=== PATIENT | female | born 1950 | race Caucasian/White ===

== ENCOUNTER 2017-04-28 07:12 | Emergency (ER) | payer MEDICARE ==
[~2017-04-28] VITALS: Ht 172.7 cm; Wt 106.8 kg
[~2017-04-28 07:12] MED LIST: AMLO2.5T PO; CLON0.1T PO; DIAZ5TAB PO; LOSA50TA6 PO; LOVA10TA PO; ONDA4TAB10 PO
[2017-04-28] MEDS ORDERED: BUSP15TA PO (07:36)
[2017-04-28] MEDS ORDERED: DIAZ5TAB PO (07:37)
[2017-04-28] MEDS ORDERED: ZOLP-413 PO (07:38)
[2017-04-28] MEDS ORDERED: LAMO25TA8 PO (07:40)
[2017-04-28] MEDS ORDERED: ACETAMINOPHEN 500 MG TABLET PO ONE (08:00)
[2017-04-28] MEDS ORDERED: ACETAMINOPHEN 500 MG TABLET ONE (08:05)
[2017-04-28 08:08] LABS: HEMATOCRIT 45.5 % (34.6-47.8); HEMOGLOBIN 15.9 g/dL (11.7-16.4); WHITE BLOOD COUNT 4.2 x10^3/uL (3.4-10)
[2017-04-28 08:20] LABS: ASPARTATE AMINO TRANSFERASE 30 U/L (15-37); BLOOD UREA NITROGEN 14 mg/dL (7-18)
[2017-04-28 08:30] LABS: PATH.CAST-FLAG NOT PRESENT; SPERM-FLAG NOT PRESENT; SRC-FLAG NOT PRESENT; XTAL-FLAG NOT PRESENT; YLC-FLAG NOT PRESENT
[2017-04-28 10:53] VITALS: BP 133/84
== END 2017-04-28 11:26 | disposition home or self-care (01) ==
LOC: ED 08:00
DX: F41.1 Generalized anxiety disorder (principal); I10 Essential (primary) hypertension; Z88.8 Allergy status to other drugs, medicaments and biological substances
CPT/HCPCS: 36415; 80053; 81001; 82140; 83690; 85025; 85610; 87086; 93005; 99285

== ENCOUNTER → 2018-08-19 | Outpatient (CLI) | payer MEDICARE ==
[~2018-08-19] MED LIST changes: -AMLO2.5T PO; +AMLO2.5T3 PO; +BUSP15TA PO; -CLON0.1T PO; +CLON0.1T22 PO; +LAMO25TA8 PO; -LOSA50TA6 PO; +LOSA50TA7 PO; +ZOLP-413 PO
== END | disposition home or self-care (01) ==
LOC: CFH 10:23
PROVIDERS: ATTEND Internal Medicine
DX: Z12.31 Encounter for screening mammogram for malignant neoplasm of breast (principal)
CPT/HCPCS: 77063; 77067

== ENCOUNTER → 2018-09-22 | Outpatient (CLI) | payer MEDICARE ==
[~2018-09-22] MED LIST changes: -AMLO2.5T3 PO; +AMLO2.5T5 PO; +LOSA50TA14 PO; -LOSA50TA7 PO
== END | disposition home or self-care (01) ==
LOC: CFH 09:02
PROVIDERS: ATTEND Internal Medicine Nephrology
DX: I12.9 Hypertensive chronic kidney disease with stage 1 through stage 4 chronic kidney disease, or unspecified chronic kidney disease (principal); N18.3 Chronic kidney disease, stage 3 (moderate); F41.9 Anxiety disorder, unspecified
CPT/HCPCS: 76770

== ENCOUNTER 2019-02-01 10:28 | Emergency (ER) | payer MEDICARE ==
[~2019-02-01] VITALS: Ht 172.7 cm; Wt 97.0 kg
--- NOTE | 2019-02-01 10:48 | NUR ---
ASSUMED CARE OF PT AT THIS TIME FROM TRIAGE, AMBULATORY TO ROOM WITH STEADY GAIT WITH SPOUSE. 68 Y/O F PRESENTS WITH "THE SHAKES, I HAVE ANXIETY AND PANIC ATTACKS, BEEN GOING ON FOR 4 YEARS, CHANGING MY MEDICATIONS EVERY 6 MONTHS, I STARTED KETAMINE TREATMENT WEDNESDAY AND STOPPED THE ATIVAN THAT WASN'T WORKING. I JUST FEEL LIKE I'M HAVING PALPITATIONS AND REALLY ANXIOUS, THEY GIVE ME ATIVAN IN THE ER AND IT ALWAYS HELPS WHICH IS ODD SINCE MY PILLS AT HOME WEREN'T." CONT PULSE OX, BP, CARDIAC MONITORS APPLIED. SR ON MONITOR. DENIES ANY CP, SOB, PAIN, N/V/D, CANTU, DIZZINESS. SHAKING NOTED IN BILATERAL UPPER EXTREMITIES. DENIES ETOH/DRUG USE. SPOUSE AT BEDSIDE. CALL LIGHT IN REACH. FALL PRECAUTIONS IN PLACE. SIDE RAILS UPX2. A&OX4. AWAITING EVAL BY ERP
[2019-02-01] MEDS ORDERED: LOSA50TA14 PO (10:51)
[2019-02-01] MEDS ORDERED: LORA-445 PO (10:51)
[2019-02-01] MEDS ORDERED: LOVA20TA2 PO (10:51)
[2019-02-01] MEDS ORDERED: VENL75CA PO (10:51)
[2019-02-01] MEDS ORDERED: TRAZ-137 PO (10:51)
[2019-02-01] MEDS ORDERED: LORazepam 2 MG/ML, 1ML IM ONE (10:58)
--- NOTE | 2019-02-01 11:00 | NUR ---
DR. WOOD AT BEDSIDE FOR EVALUATION, AWAITING ORDERS.
[2019-02-01] MEDS ORDERED: LORazepam 2 MG/ML, 1ML ONE (11:05)
--- NOTE | 2019-02-01 11:18 | NUR ---
PT MEDICATED NOTED PER MD ORDER AND EMAR FOR ANXIETY. RESTING IN POSITION OF COMFORT. SPOUSE AT BEDSIDE. VSS. DENIES NEED TO USE RESTOOM. CALL LIGHT IN REACH
[2019-02-01] MEDS ORDERED: PROMETHAZINE 25 MG/ML, 1ML ONE (11:54)
--- NOTE | 2019-02-01 11:54 | NUR ---
PT REPORTS ANXIETY "UNIMPROVED AND FEELING NAUSEATED," DR. WOOD AT BEDSIDE, AWAITING ORDERS.
--- NOTE | 2019-02-01 11:57 | NUR ---
FLOAT RN GEE AT BEDSIDE TO ASSIST WITH MEDICATION ADMINISTRATION FOR NAUSEA
[2019-02-01] MEDS ORDERED: PROMETHAZINE 25 MG/ML, 1ML IM ONE (12:00)
--- NOTE | 2019-02-01 12:18 | NUR ---
BEDSIDE REPORT FROM LESA DUVALL. ASSUMED CARE OF PATIENT AT THIS TIME.
--- NOTE | 2019-02-01 12:19 | NUR ---
BEDSIDE REPORT AND CARE TO LEXIE MCFADDEN AT THIS TIME
--- NOTE | 2019-02-01 12:50 | NUR ---
PATIENT REPORTS MEDICATION HELPED AND STATES SHE "FEELS BETTER". CHART UP FOR RECHECK, AWAITING FURTHER ORDERS, NO ADDITIONAL NEEDS AT THIS TIME, PATIENT SITTING IN GURNEY SPEAKING WITH FAMILY AT BEDSIDE.
[2019-02-01 13:44] VITALS: BP 152/77
--- NOTE | 2019-02-01 13:45 | NUR ---
Patient/Caregiver given discharge instructions and they have confirmed that they understand the instructions. Patient ambulatory with steady gait.
== END 2019-02-01 13:46 | disposition home or self-care (01) ==
LOC: ED 12:49
DX: F41.1 Generalized anxiety disorder (principal); R06.4 Hyperventilation; I10 Essential (primary) hypertension
CPT/HCPCS: 96372; 99284; J2060; J2550

== ENCOUNTER 2019-03-03 09:34 | Outpatient (CLI) | payer MEDICARE | END 2019-03-03 23:59 | disposition home or self-care (01) | LOC: CFH 09:34 → EDSTATUS 11:15 → CFH 23:59 | PROVIDERS: ATTEND Nurse Practitioner Primary Care | DX: K42.9 Umbilical hernia without obstruction or gangrene (principal); M47.817 Spondylosis without myelopathy or radiculopathy, lumbosacral region; M85.80 Other specified disorders of bone density and structure, unspecified site; I11.9 Hypertensive heart disease without heart failure | CPT/HCPCS: 74177; Q9967 ==

== ENCOUNTER 2019-03-08 09:16 | Outpatient (CLI) | payer MEDICARE ==
[~2019-03-08] VITALS: Ht 172.7 cm; Wt 98.0 kg
[~2019-03-08 09:16] MED LIST changes: +GABA300C10 PO; +LORA-445 PO; +LOVA20TA2 PO; +TRAZ-137 PO; +VENL75CA PO
[2019-03-08] MEDS ORDERED: COSYNTROPIN 0.25 MG IVPush ONE (10:00)
[2019-03-08 11:30] VITALS: BP 137/63
[2019-03-29] MEDS ORDERED: DIAZ5TAB PO (10:31)
[2019-03-29] MEDS ORDERED: TRAZ150T62 PO (10:31)
[2019-03-29] MEDS ORDERED: Propranolol PO (10:31)
[2019-03-31] MEDS ORDERED: VENL37.52 PO (15:34)
[2019-03-31] MEDS ORDERED: LISI-167 PO (15:34)
[2019-03-31] MEDS ORDERED: DIAZ5TAB PO (15:34)
[2019-03-31] MEDS ORDERED: ESCI10TA PO (15:34)
== END 2019-03-08 23:59 | disposition home or self-care (01) ==
LOC: INFUSION 09:16
PROVIDERS: ATTEND Internal Medicine
DX: R61 Generalized hyperhidrosis (principal); R00.0 Tachycardia, unspecified; R53.83 Other fatigue; R42 Dizziness and giddiness; R25.1 Tremor, unspecified; F41.9 Anxiety disorder, unspecified; I11.0 Hypertensive heart disease with heart failure; I50.9 Heart failure, unspecified; Z79.899 Other long term (current) drug therapy
CPT/HCPCS: 36415; 82533; 96374; J0834

== ENCOUNTER 2019-03-23 10:51 | Emergency (ER) | payer MEDICARE ==
[~2019-03-23] VITALS: Ht 172.7 cm; Wt 97.9 kg
[2019-03-23 14:57] VITALS: BP 189/74
== END 2019-03-23 15:22 | disposition home or self-care (01) ==
LOC: ED 14:09
DX: F41.1 Generalized anxiety disorder (principal); I10 Essential (primary) hypertension; R06.4 Hyperventilation
CPT/HCPCS: 36415; 71045; 80053; 83880; 84484; 85025; 93005; 96372; 99284; J2550

== ENCOUNTER 2019-05-08 18:45 | Inpatient (IN) | payer MEDICARE ==
[~2019-05-08] VITALS: Ht 172.7 cm; Wt 93.0 kg
[~2019-05-08 18:45] MED LIST changes: +ESCI10TA PO; +LISI-167 PO; +Propranolol PO; +TRAZ150T62 PO; +VENL37.52 PO
[2019-05-08] MEDS ORDERED: BISACODYL 10 MG SUPP PR PRN (19:00)
[2019-05-08] MEDS ORDERED: DOCUSATE 100 MG CAPSULE PO PRN (19:00)
[2019-05-08] MEDS ORDERED: ACETAMINOPHEN 325 MG TABLET PO PRN (19:00)
[2019-05-08 20:12] VITALS: BP 110/72
[2019-05-08] MEDS ORDERED: PLEASE ENTER HEIGHT AND WEIGHT MC SCH (20:30)
[2019-05-08] MEDS: LOVASTATIN 20 MG TABLET PO SCH (21:34)
[2019-05-08] MEDS: TRAZODONE 150MG TABLET PO SCH (21:34)
[2019-05-09 06:01] VITALS: BP 101/63
[2019-05-09] MEDS: DIAZEPAM 5 MG TABLET PO SCH ×2 (06:02→17:42)
[2019-05-09 06:26] LABS: ANION GAP 8 mmol/L (5-15); CHLORIDE 113 mmol/L (98-107); CHOLESTEROL, TOTAL 140 mg/dL (140-239); CREATININE 1.32 mg/dL (0.55-1.02); TRIGLYCERIDES 99 mg/dL (50-200); VLDL CHOLESTEROL 20 mg/dL (0-25)
[2019-05-09 06:36] LABS: CHOL/HDL RATIO 2.5; FREE T4 (FREE THYROXINE) 1.28 ng/dL (0.76-1.46); HDL CHOL % 40 % (28-40); HDL CHOLESTEROL (DIRECT) 56 mg/dL (40-60); LDL CHOLESTEROL,CALCULATED 64 mg/dL (54-169); LDL/HDL RATIO 1.1 (0.5-3.0)
[2019-05-09 07:45] VITALS: BP 119/72
[2019-05-09] MEDS: LISINOPRIL 10 MG TABLET PO SCH (08:33)
[2019-05-09] MEDS: ESCITALOPRAM 10MG TABLET PO SCH (08:33)
[2019-05-09] MEDS ORDERED: FLU VAC QS 19-20(4YR UP)CEL/PF 0.5 ML IM-VACC ONE (12:00)
[2019-05-09] MEDS ORDERED: FLU VACCINE PER PHARMACY IM ONE (12:00)
[2019-05-09] MEDS ORDERED: DIAZEPAM 5 MG TABLET PO ONE (12:00)
[2019-05-09 13:43] LABS: MICROSCOPIC AUTO
[2019-05-09 13:44] LABS: CULTURE INDICATED? YES
[2019-05-09 15:44] LABS: AMPHETAMINE SCREEN, URINE Negative (Negative); BARBITURATE SCREEN, URINE Negative (Negative); BENZODIAZEPINE SCREEN, URINE Positive (Negative); CANNABINOID SCREEN, URINE Negative (Negative); COCAINE SCREEN, URINE Negative (Negative); METHADONE SCREEN, URINE Negative (Negative); OPIATE SCREEN, URINE Negative (Negative)
[2019-05-09 20:05] VITALS: BP 128/74
[2019-05-09] MEDS: LOVASTATIN 20 MG TABLET PO SCH (21:15)
[2019-05-09] MEDS: TRAZODONE 150MG TABLET PO SCH (21:15)
[2019-05-10 07:16] VITALS: BP 147/78
[2019-05-10] MEDS: DIAZEPAM 5 MG TABLET PO SCH ×2 (07:23→17:04)
[2019-05-10] MEDS: LISINOPRIL 10 MG TABLET PO SCH (08:21)
[2019-05-10] MEDS: ESCITALOPRAM 10MG TABLET PO SCH (08:21)
[2019-05-10] MEDS ORDERED: LORazepam 0.5MG TABLET PO ONE (09:39)
[2019-05-10] MEDS ORDERED: LORazepam 0.5MG TABLET ONE (09:43)
[2019-05-10] MEDS ORDERED: DIAZEPAM 5 MG TABLET PO SCH (13:30)
[2019-05-10] MEDS: hydrOXyzine 10MG TABLET PO SCH ×2 (18:37→20:43)
[2019-05-10 19:47] VITALS: BP 144/75
[2019-05-10] MEDS: TRAZODONE 150MG TABLET PO SCH (20:43)
[2019-05-10] MEDS: LOVASTATIN 20 MG TABLET PO SCH (20:43)
[2019-05-11] MEDS: DIAZEPAM 5 MG TABLET PO SCH ×3 (05:38→20:01)
[2019-05-11 07:26] VITALS: BP 152/79
[2019-05-11] MEDS: hydrOXyzine 10MG TABLET PO SCH ×3 (08:25→20:00)
[2019-05-11] MEDS: ESCITALOPRAM 10MG TABLET PO SCH (08:26)
[2019-05-11] MEDS: LISINOPRIL 10 MG TABLET PO SCH (08:26)
[2019-05-11] MEDS ORDERED: NITROFURANTOIN (MACROBID) 100 MG CAPSULE PO SCH (11:00)
[2019-05-11] MEDS ORDERED: FOSFOMYCIN 3 GM PACKET PO ONE (11:30)
[2019-05-11 11:37] LABS: BASOPHILS # (AUTO) 0.01 x10^3/uL (0-0.1); BASOPHILS % (AUTO) 0 % (0-1); EOSINOPHILS # (AUTO) 0.06 x10^3/uL (0-0.4); EOSINOPHILS % (AUTO) 1 % (1-7); LYMPHOCYTES # (AUTO) 1.34 x10^3/uL (1-3.4); LYMPHOCYTES % (AUTO) 26 % (22-44); MD NO; MEAN CORPUSCULAR HEMOGLOBIN 31.1 pg (27.0-34.8); MEAN CORPUSCULAR HGB CONC 33.5 g/dL (32.4-35.8); MEAN CORPUSCULAR VOLUME 93.1 fL (80-100); MEAN PLATELET VOLUME 7.1 fL (7.4-10.4); MONOCYTES # (AUTO) 0.48 x10^3/uL (0.2-0.8); MONOCYTES % (AUTO) 9 % (2-9); NEUTROPHILS # (AUTO) 3.24 x10^3/uL (1.8-6.8); NEUTROPHILS % (AUTO) 63 % (42-75); PLATELET COUNT 217 x10^3/uL (130-400); RED BLOOD COUNT 4.63 x10^6/uL (3.82-5.3); RED CELL DISTRIBUTION WIDTH 13.3 % (9.6-15.2)
[2019-05-11 11:46] LABS: ANION GAP 5 mmol/L (5-15); CALCIUM 9.4 mg/dL (8.5-10.1); CHLORIDE 113 mmol/L (98-107); CREATININE 1.16 mg/dL (0.55-1.02)
[2019-05-11] MEDS ORDERED: ONDANSETRON ODT 4 MG PO PRN (15:00)
[2019-05-11] MEDS: ONDANSETRON ODT 4 MG PO PRN (15:36)
[2019-05-11 19:02] VITALS: BP 112/72
[2019-05-11] MEDS: LOVASTATIN 20 MG TABLET PO SCH (20:00)
[2019-05-11] MEDS: TRAZODONE 150MG TABLET PO SCH ×2 (20:00→21:39)
[2019-05-12 04:55] LABS: BASOPHILS % (AUTO) 0 % (0-1); EOSINOPHILS # (AUTO) 0.12 x10^3/uL (0-0.4); EOSINOPHILS % (AUTO) 3 % (1-7); LYMPHOCYTES # (AUTO) 2.11 x10^3/uL (1-3.4); LYMPHOCYTES % (AUTO) 44 % (22-44); MD NO; MEAN CORPUSCULAR HEMOGLOBIN 30.5 pg (27.0-34.8); MEAN CORPUSCULAR HGB CONC 33.1 g/dL (32.4-35.8); MEAN CORPUSCULAR VOLUME 92.1 fL (80-100); MONOCYTES # (AUTO) 0.57 x10^3/uL (0.2-0.8); MONOCYTES % (AUTO) 12 % (2-9); NEUTROPHILS % (AUTO) 42 % (42-75); PLATELET COUNT 190 x10^3/uL (130-400); RED BLOOD COUNT 4.41 x10^6/uL (3.82-5.3); RED CELL DISTRIBUTION WIDTH 13.7 % (9.6-15.2)
[2019-05-12 05:02] LABS: ANION GAP 7 mmol/L (5-15); CALCIUM 8.6 mg/dL (8.5-10.1); CHLORIDE 113 mmol/L (98-107); CREATININE 1.06 mg/dL (0.55-1.02)
[2019-05-12] MEDS: hydrOXyzine 10MG TABLET PO SCH ×3 (07:52→21:04)
[2019-05-12] MEDS: LISINOPRIL 10 MG TABLET PO SCH (08:03)
[2019-05-12] MEDS: ESCITALOPRAM 10MG TABLET PO SCH (08:03)
[2019-05-12 08:07] VITALS: BP 162/88
[2019-05-12] MEDS: DIAZEPAM 5 MG TABLET PO SCH ×3 (08:07→21:04)
[2019-05-12] MEDS: ONDANSETRON ODT 4 MG PO PRN (08:55)
[2019-05-12 19:27] VITALS: BP 137/78
[2019-05-12] MEDS: LOVASTATIN 20 MG TABLET PO SCH (21:03)
[2019-05-12] MEDS: TRAZODONE 150MG TABLET PO SCH (21:04)
[2019-05-13 07:05] VITALS: BP 159/79
[2019-05-13] MEDS: ESCITALOPRAM 10MG TABLET PO SCH (08:07)
[2019-05-13] MEDS: DIAZEPAM 5 MG TABLET PO SCH ×3 (08:07→21:25)
[2019-05-13] MEDS: hydrOXyzine 10MG TABLET PO SCH ×3 (08:07→21:25)
[2019-05-13] MEDS: LISINOPRIL 10 MG TABLET PO SCH (08:08)
[2019-05-13 19:34] VITALS: BP 127/79
[2019-05-13] MEDS: LOVASTATIN 20 MG TABLET PO SCH (21:25)
[2019-05-13] MEDS: TRAZODONE 150MG TABLET PO SCH (21:25)
[2019-05-14 07:17] VITALS: BP 154/80
[2019-05-14] MEDS: DIAZEPAM 5 MG TABLET PO SCH ×3 (08:21→21:15)
[2019-05-14] MEDS: hydrOXyzine 10MG TABLET PO SCH ×3 (08:21→21:15)
[2019-05-14] MEDS: ESCITALOPRAM 10MG TABLET PO SCH (08:22)
[2019-05-14] MEDS: LISINOPRIL 10 MG TABLET PO SCH (08:22)
[2019-05-14] MEDS: ONDANSETRON ODT 4 MG PO PRN ×2 (08:31→15:40)
[2019-05-14 19:47] VITALS: BP 115/74
[2019-05-14] MEDS: TRAZODONE 150MG TABLET PO SCH (21:15)
[2019-05-14] MEDS: LOVASTATIN 20 MG TABLET PO SCH (21:15)
[2019-05-15] MEDS: ONDANSETRON ODT 4 MG PO PRN ×2 (06:31→13:50)
[2019-05-15 07:32] VITALS: BP 120/77
[2019-05-15] MEDS: DIAZEPAM 5 MG TABLET PO SCH ×3 (07:54→21:07)
[2019-05-15] MEDS: LISINOPRIL 10 MG TABLET PO SCH (07:54)
[2019-05-15] MEDS: hydrOXyzine 10MG TABLET PO SCH ×3 (07:54→21:07)
[2019-05-15] MEDS: ESCITALOPRAM 10MG TABLET PO SCH (07:54)
[2019-05-15 19:37] VITALS: BP 130/60
[2019-05-15] MEDS: TRAZODONE 150MG TABLET PO SCH (21:07)
[2019-05-15] MEDS: LOVASTATIN 20 MG TABLET PO SCH (21:07)
[2019-05-16] MEDS: ONDANSETRON ODT 4 MG PO PRN ×2 (06:59→15:21)
[2019-05-16 07:54] VITALS: BP 119/74
[2019-05-16] MEDS: hydrOXyzine 10MG TABLET PO SCH (08:03)
[2019-05-16] MEDS: DIAZEPAM 5 MG TABLET PO SCH (08:03)
[2019-05-16] MEDS: LISINOPRIL 10 MG TABLET PO SCH (08:04)
[2019-05-16] MEDS: ESCITALOPRAM 10MG TABLET PO SCH (08:04)
[2019-05-16] MEDS: QUETIAPINE 25MG TABLET PO SCH ×3 (14:18→21:32)
[2019-05-16 19:25] VITALS: BP 117/74
[2019-05-16] MEDS: TRAZODONE 150MG TABLET PO SCH (21:32)
[2019-05-16] MEDS: LOVASTATIN 20 MG TABLET PO SCH (21:32)
[2019-05-17] MEDS: ONDANSETRON ODT 4 MG PO PRN (06:34)
[2019-05-17 06:59] VITALS: BP 138/79
[2019-05-17] MEDS: ESCITALOPRAM 10MG TABLET PO SCH (07:59)
[2019-05-17] MEDS: LISINOPRIL 10 MG TABLET PO SCH (07:59)
[2019-05-17] MEDS: QUETIAPINE 25MG TABLET PO SCH ×4 (08:00→21:38)
[2019-05-17] MEDS: POLYETHYLENE GLYCOL 17 GM PACKET PO PRN (08:00)
[2019-05-17] MEDS ORDERED: QUETIAPINE 25MG TABLET ONE (09:49)
[2019-05-17 19:02] VITALS: BP 123/80
[2019-05-17] MEDS: LOVASTATIN 20 MG TABLET PO SCH (21:38)
[2019-05-17] MEDS: TRAZODONE 150MG TABLET PO SCH (21:38)
[2019-05-18] MEDS: ONDANSETRON ODT 4 MG PO PRN (05:35)
[2019-05-18 07:25] VITALS: BP 130/79
[2019-05-18] MEDS: LISINOPRIL 10 MG TABLET PO SCH (07:37)
[2019-05-18] MEDS: QUETIAPINE 25MG TABLET PO SCH (07:38)
[2019-05-18] MEDS: ESCITALOPRAM 10MG TABLET PO SCH (07:38)
[2019-05-18] MEDS: MIRTAZAPINE 15 MG TABLET PO SCH ×2 (11:06→20:14)
[2019-05-18 19:15] VITALS: BP 119/76
[2019-05-18] MEDS: LOVASTATIN 20 MG TABLET PO SCH (20:14)
[2019-05-18] MEDS: TRAZODONE 150MG TABLET PO SCH (20:14)
[2019-05-19 07:10] VITALS: BP 157/83
[2019-05-19] MEDS: ONDANSETRON ODT 4 MG PO PRN (07:42)
[2019-05-19] MEDS: MIRTAZAPINE 15 MG TABLET PO SCH ×2 (08:10→21:28)
[2019-05-19] MEDS: LISINOPRIL 10 MG TABLET PO SCH (08:10)
[2019-05-19] MEDS: ESCITALOPRAM 10MG TABLET PO SCH (08:11)
[2019-05-19] MEDS: POLYETHYLENE GLYCOL 17 GM PACKET PO PRN (09:43)
[2019-05-19 11:05] VITALS: BP 130/70
[2019-05-19 19:31] VITALS: BP 112/75
[2019-05-19] MEDS: TRAZODONE 150MG TABLET PO SCH (21:28)
[2019-05-19] MEDS: LOVASTATIN 20 MG TABLET PO SCH (21:28)
[2019-05-20 07:00] VITALS: BP 140/70
[2019-05-20] MEDS: ONDANSETRON ODT 4 MG PO PRN ×2 (07:52→17:22)
[2019-05-20] MEDS: LISINOPRIL 10 MG TABLET PO SCH (07:53)
[2019-05-20] MEDS: ESCITALOPRAM 10MG TABLET PO SCH (07:53)
[2019-05-20] MEDS: MIRTAZAPINE 15 MG TABLET PO SCH ×2 (07:53→21:43)
[2019-05-20 17:29] VITALS: BP 141/84
[2019-05-20 19:41] VITALS: BP 122/78
[2019-05-20] MEDS: LOVASTATIN 20 MG TABLET PO SCH (21:43)
[2019-05-20] MEDS: TRAZODONE 150MG TABLET PO SCH (21:43)
[2019-05-21] MEDS: ONDANSETRON ODT 4 MG PO PRN ×3 (06:08→22:31)
[2019-05-21 07:51] VITALS: BP 146/85
[2019-05-21] MEDS: ESCITALOPRAM 10MG TABLET PO SCH (07:56)
[2019-05-21] MEDS: LISINOPRIL 10 MG TABLET PO SCH (07:57)
[2019-05-21] MEDS: MIRTAZAPINE 15 MG TABLET PO SCH (07:57)
[2019-05-21] MEDS: DOXEPIN 10 MG CAPSULE PO SCH ×3 (11:23→21:42)
[2019-05-21] MEDS ORDERED: MAGNESIUM CITRATE 300ML ORAL SOL PO PRN (13:30)
[2019-05-21] MEDS ORDERED: ONDANSETRON ODT 4 MG ONE (13:38)
[2019-05-21] MEDS ORDERED: OMNIPAQUE 350 MG/ML, 100ML BOTTLE ONE (15:19)
[2019-05-21 19:55] VITALS: BP 106/68
[2019-05-21] MEDS ORDERED: QUETIAPINE 25MG TABLET PO SCH (21:00)
[2019-05-21 21:37] VITALS: BP 148/73
[2019-05-21] MEDS: LOVASTATIN 20 MG TABLET PO SCH (21:42)
[2019-05-21 21:58] VITALS: BP 144/88
[2019-05-22 07:27] VITALS: BP 144/86
[2019-05-22] MEDS: ESCITALOPRAM 10MG TABLET PO SCH (08:17)
[2019-05-22] MEDS: DOXEPIN 10 MG CAPSULE PO SCH ×2 (08:17→15:33)
[2019-05-22] MEDS: ONDANSETRON ODT 4 MG PO PRN ×3 (08:17→21:36)
[2019-05-22] MEDS: LISINOPRIL 10 MG TABLET PO SCH (08:17)
[2019-05-22 19:29] VITALS: BP 108/63
[2019-05-22] MEDS: FAMOTIDINE 20 MG TABLET PO SCH (20:59)
[2019-05-22] MEDS: LOVASTATIN 20 MG TABLET PO SCH (21:36)
[2019-05-22] MEDS: LACTOBACILLUS CHEW TABLET PO SCH (21:36)
[2019-05-22] MEDS: TRAZODONE 100MG TABLET PO SCH (21:36)
[2019-05-23 07:10] VITALS: BP 118/68
[2019-05-23] MEDS: LISINOPRIL 10 MG TABLET PO SCH (08:34)
[2019-05-23] MEDS: FAMOTIDINE 20 MG TABLET PO SCH ×2 (08:34→21:03)
[2019-05-23] MEDS: LACTOBACILLUS CHEW TABLET PO SCH ×3 (08:34→21:03)
[2019-05-23] MEDS: ESCITALOPRAM 10MG TABLET PO SCH (08:34)
[2019-05-23 20:37] VITALS: BP 131/76
[2019-05-23] MEDS: LOVASTATIN 20 MG TABLET PO SCH (21:03)
[2019-05-23] MEDS: TRAZODONE 100MG TABLET PO SCH (21:03)
[2019-05-24 07:30] VITALS: BP 161/69
[2019-05-24] MEDS: FAMOTIDINE 20 MG TABLET PO SCH ×2 (08:03→20:33)
[2019-05-24] MEDS: LACTOBACILLUS CHEW TABLET PO SCH ×3 (08:04→20:33)
[2019-05-24] MEDS: LISINOPRIL 10 MG TABLET PO SCH (08:04)
[2019-05-24] MEDS: ESCITALOPRAM 10MG TABLET PO SCH (08:04)
[2019-05-24 09:34] VITALS: BP 137/79
[2019-05-24 19:20] VITALS: BP 142/84
[2019-05-24] MEDS: TRAZODONE 100MG TABLET PO SCH (20:34)
[2019-05-24] MEDS: LOVASTATIN 20 MG TABLET PO SCH (20:34)
[2019-05-25] MEDS: FAMOTIDINE 20 MG TABLET PO SCH ×2 (05:16→18:04)
[2019-05-25] MEDS: LACTOBACILLUS CHEW TABLET PO SCH ×3 (05:16→21:15)
[2019-05-25 07:00] LABS: CREATININE 1.26 mg/dL (0.55-1.02)
[2019-05-25 07:03] VITALS: BP 123/70
[2019-05-25] MEDS: LISINOPRIL 10 MG TABLET PO SCH (07:50)
[2019-05-25] MEDS: ESCITALOPRAM 10MG TABLET PO SCH (07:50)
[2019-05-25] MEDS: ONDANSETRON ODT 4 MG PO PRN (09:36)
[2019-05-25 19:15] VITALS: BP 114/75
[2019-05-25] MEDS: TRAZODONE 100MG TABLET PO SCH (21:15)
[2019-05-25] MEDS: LOVASTATIN 20 MG TABLET PO SCH (21:15)
[2019-05-26] MEDS: LACTOBACILLUS CHEW TABLET PO SCH ×3 (06:17→20:41)
[2019-05-26] MEDS: FAMOTIDINE 20 MG TABLET PO SCH ×2 (06:17→18:41)
[2019-05-26 07:23] VITALS: BP 136/78
[2019-05-26] MEDS: LISINOPRIL 10 MG TABLET PO SCH (08:12)
[2019-05-26] MEDS: ESCITALOPRAM 10MG TABLET PO SCH (08:12)
[2019-05-26] MEDS: ONDANSETRON ODT 4 MG PO PRN (09:08)
[2019-05-26] MEDS ORDERED: CLON0.5T11 PO (14:27)
[2019-05-26] MEDS ORDERED: ESCI10TA PO (14:27)
[2019-05-26] MEDS ORDERED: LISI-167 PO (14:27)
[2019-05-26] MEDS ORDERED: FAMO20TA7 PO (14:27)
[2019-05-26] MEDS ORDERED: ACID1TAB7 PO (14:27)
[2019-05-26] MEDS ORDERED: TRAZ-137 PO (14:27)
[2019-05-26] MEDS ORDERED: LOVA20TA2 PO (14:27)
[2019-05-26 19:21] VITALS: BP 124/78
[2019-05-26] MEDS: TRAZODONE 100MG TABLET PO SCH (20:42)
[2019-05-26] MEDS: LOVASTATIN 20 MG TABLET PO SCH (20:42)
[2019-05-27] MEDS: FAMOTIDINE 20 MG TABLET PO SCH (05:43)
[2019-05-27] MEDS: LACTOBACILLUS CHEW TABLET PO SCH (05:44)
[2019-05-27 07:18] VITALS: BP 132/76
[2019-05-27] MEDS: ONDANSETRON ODT 4 MG PO PRN (07:38)
[2019-05-27] MEDS: ESCITALOPRAM 10MG TABLET PO SCH (08:26)
[2019-05-27] MEDS: LISINOPRIL 10 MG TABLET PO SCH (08:26)
[2019-06-05] MEDS ORDERED: ESCI10TA10 PO (11:23)
[2019-06-05] MEDS ORDERED: LOSA50TA14 PO (11:24)
[2019-06-05] MEDS ORDERED: LISI5TAB7 PO (11:24)
[2019-06-05] MEDS ORDERED: ONDA4TAB7 PO (11:25)
== END 2019-05-27 10:20 | disposition home or self-care (01) | DRG 885 ==
LOC: 3E 20:05
PROVIDERS: ADMIT Psychiatry & Neurology Psychosomatic Medicine; ATTEND Psychiatry & Neurology Psychosomatic Medicine
DX: F33.1 Major depressive disorder, recurrent, moderate (principal); N39.0 Urinary tract infection, site not specified; F41.1 Generalized anxiety disorder; E78.5 Hyperlipidemia, unspecified; F41.0 Panic disorder [episodic paroxysmal anxiety]; G47.00 Insomnia, unspecified; I10 Essential (primary) hypertension; K21.9 Gastro-esophageal reflux disease without esophagitis
CPT/HCPCS: 36415; 74177; 80048; 80061; 80307; 81001; 82140; 82565; 83516; 84439; 84443; 85025; 86225; 86235; 86592; 86780; 87040; 87086; 93005; Q0162; Q9967; 29105

== ENCOUNTER 2019-07-03 12:23 | Emergency (ER) | payer MEDICARE ==
[~2019-07-03] VITALS: Ht 167.6 cm; Wt 91.0 kg
[~2019-07-03 12:23] MED LIST changes: +ACID1TAB7 PO; +CLON0.5T11 PO; +ESCI10TA10 PO; +FAMO20TA7 PO; +LISI5TAB7 PO; +ONDA4TAB7 PO
--- NOTE | 2019-07-03 13:05 | NUR ---
ASSUMED CARE OF PT AT THIS TIME FROM [facility]. 68 Y/O F PRESENTS STATING "VERY ANXIOUS PANIC ATTACK, MY MEDS AREN'T WORKING." PT PACING IN ROOM, ABLE TO TAKE RE-DIRECTION AND FOLLOW CALMING TECHNIQUES, PT ASSISTED TO BED FOR ASSESSMENT AND VITALS. PT HAVING DIFFICULTY SITTING IN ONE POSITION. DR. SMITH AT BEDSIDE FOR EVALUATION, CONT PULSE OX, BP MONITORS APPLIED. VSS. UNABLE TO OBTAIN BP AT THIS TIME DUE TO PT MOVEMENT, WILL ATTEMPT PER MD S/P MEDICATION ADMIN. PT FOLLOWING CALMING TECNIQUES, REQUEST CLONAZEPAM "I NEED MORE CLONAZEPAM, THE PILL WORKS." AFTER DISCUSSION WITH DR. SMITH, PT AGREES TO TRY IM ATIVAN BEFORE PO CLONAZEPAM FOR "FASTER ONSET" PER MD. CALL LIGHT IN REACH. FALL PRECAUTIONS IN PLACE. SIDE RAILS UPX2. A&OX4. SPOUSE AT BEDSIDE. DENIES ANY PAIN, CP, SOB, N/V/D.
--- NOTE | 2019-07-03 13:15 | NUR ---
PT REQUESTS TO AMBULATE TO RESTROOM WITH UA SAMPLE, ONCE IN RESTROOM, DENIES URGE, DISCUSSED WITH DR. SMITH AWARE, TO ATTEMPT CLEAN CATCH AGAIN AT LATER TIME, NO STRAIGHT CATH PER MD.
[2019-07-03] MEDS ORDERED: LORazepam 2 MG/ML, 1ML ONE (13:17)
--- NOTE | 2019-07-03 13:25 | NUR ---
PT MEDICATED NOTED PER MD ORDER IN EMART FOR ANXIETY. CALMING TECHNIQUES IMPLEMENTED. DEEP BREATHING WITH PT, PT RELAXING. VSS. CALL LIGHT IN REACH. FALL PRECUATIONS IN PLACE. SPOUSE AT BEDSIDE. LIGHTS DIMMED FOR COMFORT. DECLINES BLANKET.
[2019-07-03] MEDS ORDERED: LORazepam 2 MG/ML, 1ML IM ONE (13:30)
--- NOTE | 2019-07-03 13:47 | NUR ---
PT REPORTS "THE ATIVAN MADE ME FEEL WORSE, I WANT CLONAZEPAM PILL PLEASE." DISCUSSED WITH DR. SMITH, AWARE, AWAITING ORDERS. CALL LIGHT IN REACH. SPOUSE AT BEDSIDE
--- NOTE | 2019-07-03 14:10 | NUR ---
DR. SMITH AT BEDSIDE DISCUSSING MEDICATIONS AND POC WITH PT AND PT SPOUSE
[2019-07-03 14:28] LABS: BASOPHILS # (AUTO) 0.02 x10^3/uL (0-0.1); BASOPHILS % (AUTO) 0 % (0-1); EOSINOPHILS # (AUTO) 0.07 x10^3/uL (0-0.4); EOSINOPHILS % (AUTO) 1 % (1-7); LYMPHOCYTES # (AUTO) 1.92 x10^3/uL (1-3.4); LYMPHOCYTES % (AUTO) 21 % (22-44); MD NO; MEAN CORPUSCULAR HEMOGLOBIN 30.7 pg (27.0-34.8); MEAN CORPUSCULAR HGB CONC 33.2 g/dL (32.4-35.8); MEAN CORPUSCULAR VOLUME 92.3 fL (80-100); MEAN PLATELET VOLUME 6.8 fL (7.4-10.4); MONOCYTES # (AUTO) 0.76 x10^3/uL (0.2-0.8); MONOCYTES % (AUTO) 8 % (2-9); NEUTROPHILS # (AUTO) 6.54 x10^3/uL (1.8-6.8); NEUTROPHILS % (AUTO) 70 % (42-75); PLATELET COUNT 278 x10^3/uL (130-400); RED BLOOD COUNT 5.23 x10^6/uL (3.82-5.3); RED CELL DISTRIBUTION WIDTH 13.2 % (9.6-15.2)
--- NOTE | 2019-07-03 14:33 | NUR ---
PT MEDICATED NOTED PER MD ORDER AND PT REQUEST FOR CONTINUED ANXIETY. PT AMBULATED TO RESTROOM AGAIN FOR UA CLEAN CATCH ATTEMPT, STATES DENIES URGE ONCE IN RESTROOM. BACK TO BED, RESTING IN POSITION OF COMFORT. SPOUSE REMAINS AT BEDSIDE. CALMING TECHNIQUES AND DEEP BREATHING IMPLEMENTED WITH LIGHTS DIMMED. CALL LIGHT IN REACH. FALL PRECAUTIONS IN PLACE. DR. SMITH AWARE, PT UNABLE TO PROVIDE URINE AT THIS TIME, NO NEW ORDERS RECEIVED. VSS.
[2019-07-03 14:44] LABS: ALANINE AMINOTRANSFERASE 25 U/L (12-78); ALBUMIN 4.1 g/dL (3.4-5.0); ANION GAP 8 mmol/L (5-15); CALCIUM 9.9 mg/dL (8.5-10.1); CHLORIDE 111 mmol/L (98-107); CREATININE 1.35 mg/dL (0.55-1.02)
[2019-07-03 14:54] LABS: ALKALINE PHOSPHATASE 71 U/L (45-117); BILIRUBIN,TOTAL 1.3 mg/dL (0.2-1.0); TOTAL PROTEIN 7.7 g/dL (6.4-8.2)
[2019-07-03 15:05] LABS: SALICYLATE LEVEL < 1.7 mg/dL (2.8-20.0)
--- NOTE | 2019-07-03 15:33 | NUR ---
PT ANXIETY GREATLY IMPROVED, "I FEEL BETTER, MUCH MORE RELAXED, THAT MEDICINE REALLY WORKED." AMBULATED TO RESTROOM WITH PT FOR CLEAN CATCH UA PER MD REQUEST S/P PT REPORT OF "PAIN AND BURING WHEN I PEE, IT SMELLS." PT ATTEMPTED UA FOR 15 MINUTES AND THEN DENIED URGE, "I PEED RIGHT BEFORE I GOT HERE AND I HAVEN'T DRANK MUCH, I JUST DONT FEEL LIKE I NEED TO PEE." DISCUSSED UA WITH DR. SMITH, AWARE, NO NEW ORDERS RECEIVED, NO ORDER FOR STRAIGHT CATH. MD TO SEE PT. CALL LIGHT IN REACH. FALL PRECAUTIONS IN PLACE. RESTING COMFORTABLY WITH SPOUSE AT BEDSIDE
--- NOTE | 2019-07-03 16:00 | NUR ---
DR. SMITH AT BEDSIDE DISCUSSING DISCHARGE POC WITH PT AND PT SPOUSE. NO URINE TO BE COLLECTED PRIOR TO DISCHARGE. PT CLEARED FOR D/C BY ERP
[2019-07-03 16:16] VITALS: BP 129/86
== END 2019-07-03 16:17 | disposition home or self-care (01) ==
LOC: ED 15:47
DX: F41.1 Generalized anxiety disorder (principal); I10 Essential (primary) hypertension
CPT/HCPCS: 36415; 80053; 80307; 84443; 85025; 96372; 99284; J2060

== ENCOUNTER → 2019-08-14 | Outpatient (CLI) | payer MEDICARE | END | disposition home or self-care (01) | LOC: RAD 09:42 | DX: R11.0 Nausea (principal); F41.9 Anxiety disorder, unspecified; Z68.33 Body mass index [BMI] 33.0-33.9, adult; Z98.890 Other specified postprocedural states; Z88.8 Allergy status to other drugs, medicaments and biological substances; Z80.3 Family history of malignant neoplasm of breast | CPT/HCPCS: 78264; A9541 ==

== ENCOUNTER 2019-08-22 12:51 | Outpatient (CLI) | payer MEDICARE ==
[~2019-08-22 12:51] MED LIST changes: +CLON-364 PO; -CLON0.5T11 PO; -TRAZ-137 PO; +TRAZ-175 PO
== END 2019-08-22 23:59 | disposition home or self-care (01) ==
LOC: CFH 12:51
PROVIDERS: ATTEND Nurse Practitioner Primary Care
DX: N64.4 Mastodynia (principal); Z85.3 Personal history of malignant neoplasm of breast
CPT/HCPCS: 76642; 77066; G0279

== ENCOUNTER 2020-08-23 10:16 | Outpatient (CLI) | payer MEDICARE ==
[~2020-08-23 10:16] MED LIST changes: -ESCI10TA PO; +ESCI10TA5 PO
== END 2020-08-23 23:59 | disposition home or self-care (01) ==
LOC: CFH 10:16
PROVIDERS: ATTEND Nurse Practitioner Primary Care
DX: Z12.31 Encounter for screening mammogram for malignant neoplasm of breast (principal)
CPT/HCPCS: 77063; 77067